=== PATIENT | male | born 1980 | race Caucasian/White ===

== ENCOUNTER 2022-05-18 11:08 | Outpatient (CLI) | payer BC, SELFPAY ==
[2022-05-18 12:22] LABS: Albumin* 4.4 g/dL (3.3-5.0); Chloride* 109 mmol/L (96-114)
[2022-05-18 12:23] LABS: Potassium* 4.5 mmol/L (3.6-5.1); Sodium* 140 mmol/L (135-149)
[2022-05-18 12:25] LABS: Aspartate Amino Transferase* 30 U/L (12-35); Bilirubin Total* 0.8 mg/dL (0.1-1.5); Blood Urea Nitrogen* 16 mg/dL (5-24); Carbon Dioxide* 22 mmol/L (20-32); Cholesterol* 202 mg/dL (90-199); Creatinine* 0.9 mg/dL (0.5-1.5); Estimated Glomerular Filt Rate 109 ml/min
[2022-05-18 12:26] LABS: Alanine Aminotransferase* 46 U/L (4-50); Alkaline Phosphatase* 78 U/L (40-150); Calcium* 9.3 mg/dL (8.4-10.6); Glucose* 112 mg/dL (60-115); HDL Cholesterol* 56 mg/dL (>=40); LDL Cholesterol Calculated 118 mg/dL (<100); Triglycerides* 142 mg/dL (40-149)
[2022-05-20 01:27] LABS: Testosterone, Adult Male 329 ng/dL (300-890)
== END 2022-05-18 11:09 | disposition home or self-care (01) ==
LOC: NFLDREF 11:09
PROVIDERS: PCP Family Medicine; Visit Provider Family Medicine
DX: Z00.00 Encounter for general adult medical examination without abnormal findings (principal); E78.5 Hyperlipidemia, unspecified; R53.83 Other fatigue; R79.89 Other specified abnormal findings of blood chemistry; E66.9 Obesity, unspecified; R73.01 Impaired fasting glucose
CPT/HCPCS: 80053; 80061; 84403; 84443

== ENCOUNTER 2022-11-22 09:57 | Outpatient (CLI) | payer OTHER, SELFPAY | END 2022-11-22 09:58 | disposition home or self-care (01) | PROVIDERS: PCP Family Medicine; Visit Provider Family Medicine | DX: E79.0 Hyperuricemia without signs of inflammatory arthritis and tophaceous disease (principal); M25.50 Pain in unspecified joint; R73.03 Prediabetes; R53.83 Other fatigue | CPT/HCPCS: 80053; 84550 ==